=== PATIENT | female | born 1935 | race Caucasian/White ===

== ENCOUNTER → 2020-09-10 | Day surgery (SDC) | payer MEDICARE ==
[~2020-09-10] VITALS: Ht 162.6 cm; Wt 54.4 kg
[~2020-09-10] MED LIST: ASPIRIN EC81 M1 PO; DAILY VALUE1 EACH PO; GLUCOSAMINE &1 EACH PO; NORCO 5-325 TA1 EACH PO; ONDANSETRON ODT8 MG PO; OS-CAL500 MG PO; PROBIOTIC1 EAC1 PO; SYNTHROID50 MCG PO; VITAMIN B122500 MCG PO; VITAMIN D325 MC1 PO
[2020-09-10 10:57] LABS: HCT 39.4 % (37.0-47.0); HGB 12.8 g/dl (12.5-16.0); MCH 30.2 pg (25.0-31.0); MCHC 32.5 g/dL (32.0-36.0); MCV 92.9 fL (78.0-100.0); MPV 9.8 fL (6.0-9.5); RBC 4.24 M/uL (4.20-5.40); RDW 14.7 % (11.5-14.0); WBC 5.1 K/uL (4.0-10.5)
[2020-09-10 11:38] LABS: ALBUMIN 2.8 g/dL (3.4-5.0); BILIRUBIN - TOTAL 1.2 mg/dL (0.2-1.0); BUN/CREAT RATIO (CALC) 23.2 RATIO; CREATININE 0.69 mg/dL (0.51-0.95); GLOBULIN (CALCULATION) 5.4 g/dL; POTASSIUM 4.2 mmol/L (3.5-5.1); TOTAL PROTEIN 8.2 g/dL (6.4-8.2)
== END | disposition home or self-care (01) ==
LOC: FAS 10:03
PROVIDERS: Surgery
DX: K40.30 Unilateral inguinal hernia, with obstruction, without gangrene, not specified as recurrent (principal); M19.90 Unspecified osteoarthritis, unspecified site; E03.9 Hypothyroidism, unspecified; Z87.891 Personal history of nicotine dependence; Z88.1 Allergy status to other antibiotic agents; Z88.8 Allergy status to other drugs, medicaments and biological substances; Z79.82 Long term (current) use of aspirin; Z79.899 Other long term (current) drug therapy
CPT/HCPCS: 36415; 80053; 93005; C1781; J2250; J2405; J2704; J2710; J3010; J7120